=== PATIENT | female | born 1980 | race Two or more races ===

== ENCOUNTER 2023-05-06 22:23 | Emergency (ER) | payer OTHER ==
[~2023-05-06] VITALS: Ht 149.9 cm; Wt 77.1 kg
[2023-05-06] MEDS ORDERED: FAMOTIDINE/PF 20 MG in 0.9 % SODIUM CHLORIDE 8 ML IV PUSH STA (23:25)
[2023-05-06] MEDS ORDERED: 0.9 % SODIUM CHLORIDE 1,000 ML IV SCH (23:30)
[2023-05-07 00:11] LABS: HEMATOCRIT 36.5 % (36.0-45.00); HEMOGLOBIN 12.1 g/dL (12.0-15.00); MEAN CELL VOLUME 86.2 fL (80.00-100.00); MEAN CORPUSCULAR HEMOGLOBIN 28.5 pg (27.00-32.0); PLATELET COUNT 256 K/uL (150-450); RED BLOOD COUNT 4.24 M/uL (4.00-6.00); RED CELL DISTRIBUTION WIDTH 16.2 % (11.5-14.5)
[2023-05-07 00:53] LABS: URINE APPEARANCE Clear; URINE BILIRRUBIN Negative (NEGATIVE); URINE BLOOD Negative; URINE COLOR Yellow; URINE GLUCOSE Negative (NEGATIVE); URINE LEUKOCYTE Negative; URINE NITRATE Negative; URINE PROTEIN Negative (NEGATIVE); URINE UROBILINOGEN 0.2 E.U./dl
[2023-05-07 00:57] LABS: URINE BACTERIA 2408.9 uL (0.0-1933); URINE EPITHELIAL CELLS 41.2 uL (0.0-38.8); URINE RBC 13.7 uL (0.0-20.8); URINE WBC 9.8 uL (0.0-23.2)
[2023-05-07 00:58] LABS: ALBUMIN 3.9 gm/dL (3.4-5.0); BILIRUBIN TOTAL 0.21 mg/dL (0.3-1.2); CALCIUM 9.5 mg/dL (8.5-10.1); CREATININE SERUM 1.02 mg/dL (0.55-1.02); GFR 59.72; GLOBULINA 3.9 G/DL (2.4-3.5); POTASSIUM 3.37 mEq/L (3.5-5.1); TOTAL PROTEIN 7.8 gm/dL (6.4-8.2)
== END 2023-05-07 03:10 | disposition home or self-care (01) ==
LOC: ER 22:24
PROVIDERS: General Practice
DX: R55 Syncope and collapse (principal); Z88.0 Allergy status to penicillin